=== PATIENT | female | born 1955 | race Asian ===

== ENCOUNTER → 2016-11-18 | Outpatient (CLI) | payer OTHER ==
[~2016-11-18] MED LIST: AMLO-512 PO; ASCO500 PO; CALC-895 PO; FEBU40T PO; GADOBUTROL 1 MMOL/ML 10 ML VIAL IVP ONE; HYDR25TA PO; LISI-662 PO; METF500T4 PO; SIMV-260 PO; TRAM50TA4 PO; VITAD1000 PO
== END | disposition home or self-care (01) ==
LOC: RADMN 09:10
PROVIDERS: ATTEND Legal Medicine
DX: M79.89 Other specified soft tissue disorders (principal); M65.871 Other synovitis and tenosynovitis, right ankle and foot
CPT/HCPCS: 73723; A9585

== ENCOUNTER 2017-04-01 06:09 | Emergency (ER) | payer OTHER ==
[~2017-04-01] VITALS: Ht 160 cm; Wt 65.9 kg
[~2017-04-01 06:09] MED LIST changes: -FEBU40T PO; -GADOBUTROL 1 MMOL/ML 10 ML VIAL IVP ONE; -TRAM50TA4 PO
[2017-04-01 06:18] LABS: GLUCOSE,POINT OF CARE 122 MG/DL (70-110)
[2017-04-01] MEDS ORDERED: TRAM50TA4 PO (06:19)
[2017-04-01] MEDS ORDERED: FEBU40T PO (06:19)
[2017-04-01] MEDS: HYDROCODONE/ACETAMINOPHEN 5-325 MG TABLET PO ONE (06:37)
[2017-04-01] MEDS: COLCHICINE 0.6 MG TABLET PO ONE (06:38)
[2017-04-01] MEDS: IBUPROFEN 600 MG TABLET PO ONE (06:38)
[2017-04-01 08:04] VITALS: BP 129/83
== END 2017-04-01 08:05 | disposition home or self-care (01) ==
LOC: EMS 06:10
DX: M10.9 Gout, unspecified (principal); E11.9 Type 2 diabetes mellitus without complications; I10 Essential (primary) hypertension
CPT/HCPCS: 82962; 99284

== ENCOUNTER 2017-06-21 12:28 | Emergency (ER) | payer OTHER ==
[~2017-06-21] VITALS: Ht 152.4 cm; Wt 56.8 kg
[~2017-06-21 12:28] MED LIST changes: +FEBU40T PO; +TRAM50TA4 PO
[2017-06-21] MEDS ORDERED: MORPHINE SULFATE 4 MG/ML SYRINGE IM ONE (15:15)
[2017-06-21] MEDS ORDERED: ONDANSETRON HCL 4 MG/2 ML VIAL IM ONE (15:15)
[2017-06-21] MEDS ORDERED: CYCLOBENZAPRINE HCL 10 MG TABLET PO ONE (15:15)
[2017-06-21 16:14] VITALS: BP 115/52
== END 2017-06-21 16:15 | disposition home or self-care (01) ==
LOC: EMS 12:29
DX: M54.32 Sciatica, left side (principal); M47.896 Other spondylosis, lumbar region; M16.12 Unilateral primary osteoarthritis, left hip; E11.9 Type 2 diabetes mellitus without complications; I10 Essential (primary) hypertension
CPT/HCPCS: 72100; 73503; 82962; 96372; 99284; J2270; J2405

== ENCOUNTER → 2017-12-23 | Outpatient (CLI) | payer OTHER | END | disposition home or self-care (01) | LOC: RADPV 08:23 | PROVIDERS: ATTEND Legal Medicine | DX: N28.1 Cyst of kidney, acquired (principal); I10 Essential (primary) hypertension | CPT/HCPCS: 76770 ==

== ENCOUNTER → 2018-10-05 | Outpatient (CLI) | payer OTHER ==
[~2018-10-05] MED LIST changes: +METF-960 PO; -METF500T4 PO
== END | disposition home or self-care (01) ==
LOC: RADPV 12:53
PROVIDERS: ATTEND Legal Medicine
DX: M47.812 Spondylosis without myelopathy or radiculopathy, cervical region (principal); M19.011 Primary osteoarthritis, right shoulder; M19.012 Primary osteoarthritis, left shoulder
CPT/HCPCS: 72040